=== PATIENT | male | born 1940 | race Caucasian/White ===

== ENCOUNTER 2023-04-24 10:59 | Outpatient (OUT) | payer MEDICARE, SELFPAY ==
--- NOTE | 2023-04-24 11:03 | US_ITS ---
[address] [address] Patient Name: JEANCARLOS MELÉNDEZ MRN: [id number] date: 1940 Sex: M Assigned Patient Location: Current Patient Location: Accession/Order Number: [id number] Exam Date: 04/24/2023 11:04 Report Date: 04/25/2023 22:40 At the request of: HEDY TITUS Procedure: US venous doppler LE RT RIGHT LOWER EXTREMITY DEEP VENOUS ULTRASOUND WITH DOPPLER IMAGING CLINICAL HISTORY: Lower extremity swelling COMPARISON: None TECHNIQUE: Zhang scale with compression maneuvers, Color Doppler and Spectral Doppler at rest and with augmentation of the right distal external iliac, common femoral, femoral and popliteal veins was performed. Diehl scale with compression maneuvers of the peroneal and posterior tibial veins was performed. The great and small saphenous veins were imaged in diehl scale with compression maneuvers at their insertion to the deep system. The contralateral external iliac vein and common femoral vein were imaged for comparison. Images were obtained and stored in a permanent archive. RESULT: RIGHT LOWER EXTREMITY PROXIMAL DEEP VEINS Distal External Iliac and Common Femoral Veins: Compression: Normal Doppler: Normal, spontaneous respirophasic flow Normal response to augmentation Femoral vein: Compression: Normal Doppler: Normal, spontaneous flow Normal response to augmentation Popliteal vein: Compression: Normal Doppler: Normal, spontaneous flow Normal response to augmentation CALF DEEP VEINS Peroneal veins: Normal compression Posterior tibial veins: Normal compression Gastrocnemius and Soleal veins: Not imaged SUPERFICIAL VEINS Great saphenous: Patent and compressible at insertion into common femoral vein; not otherwise assessed. Small Saphenous: Patent and compressible in the proximal calf, not otherwise assessed. US/US venous doppler LE RT IMPRESSION: NEGATIVE STUDY FOR ACUTE PROXIMAL DVT IN THE RIGHT LOWER EXTREMITY. NEGATIVE STUDY FOR ACUTE CALF DVT IN THE RIGHT LOWER EXTREMITY. NEGATIVE STUDY FOR SUPERFICIAL THROMBOPHLEBITIS IN THE RIGHT LOWER EXTREMITY Electronically authenticated by: MIGUEL EDOUARD Date: 04/25/2023 22:40
== END 2023-04-24 11:00 | disposition home or self-care (01) ==
LOC: US 10:59
PROVIDERS: PCP Family Medicine; Visit Provider Nurse Practitioner Family
DX: R60.0 Localized edema (principal)
CPT/HCPCS: 93971

== ENCOUNTER 2023-04-25 21:49 | Inpatient (IN) | payer MEDICARE, SELFPAY ==
[2023-04-25] VITALS (10 sets, daily range): BP systolic 183–216; BP diastolic 86–104; PULSE 57–67; RESP 15–19; TEMP 36.4; O2SAT 92–99; BMI 28.4
--- NOTE | 2023-04-25 22:05 | ECG_ITS ---
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
--- NOTE | 2023-04-25 22:06 | CT_ITS ---
The [address] [address] Patient Name: JEANCARLOS MELÉNDEZ MRN: [id number] date: 1940 Sex: M Assigned Patient Location: ED.MAIN Current Patient Location: Accession/Order Number: [id number] Exam Date: 04/25/2023 22:15 Report Date: 04/25/2023 22:39 At the request of: JANETH LEWIS Procedure: CT head/brain wo con EXAMINATION: CT head/brain wo con HISTORY: Seizures and altered mental status. - TECHNIQUE: CT head without contrast. All CT scans at this facility use dose modulation, iterative reconstruction, and/or weight based dosing when appropriate to reduce radiation dose to as low as reasonably achievable. COMPARISON: None. RESULT: Post-operative change: None. Acute change: No evidence of an acute intracranial process. Hemorrhage: No evidence of acute intracranial hemorrhage. Mass Lesion / Mass Effect: No evidence of an intracranial mass or extraaxial fluid collection. No significant mass effect. Chronic change: Scattered patchy foci of low attenuation are present within supratentorial white matter which is a nonspecific finding but likely represents mild microvascular ischemia. Atherosclerotic calcification of the carotid siphons and vertebrobasilar arteries. Parenchyma: Mild generalized volume loss. Ventricles: Ventricular enlargement concordant with the degree of parenchymal volume loss. Other: The calvarium, skull base, imaged paranasal sinuses, mastoids, orbits and extracranial soft tissues are unremarkable. CT/CT head/brain wo con IMPRESSION: 1. No acute intracranial abnormality; no acute infarct, intracranial hemorrhage or extra-axial collection. 2. Chronic microvascular ischemia and involutional changes. Electronically authenticated by: MIGUEL EDOUARD Date: 04/25/2023 22:39
[2023-04-25 22:33] LABS: Basophils Percent Auto 0.3 % (0.2-2.0); Eosinophils Absolute Auto 0.2 10^3/uL (0.0-0.7); Eosinophils Percent Auto 1.7 % (0.9-7.0); Hematocrit 39.5 % (42.0-54.0); Hemoglobin 13.6 g/dL (14.0-18.0); Immature Granulocytes Abs Auto 0.04 10^3/uL (0.00-0.03); Immature Granulocytes Pct Auto 0.4 % (0.0-0.5); Lymphocytes Percent Auto 9.9 % (20.5-60.0); Mean Corpuscular HGB Conc 34.4 g/dL (29.9-35.2); Mean Corpuscular Hemoglobin 30.2 pg (25.9-34.0); Mean Corpuscular Volume 87.6 fL (80.0-94.0); Mean Platelet Volume 8.6 fL (9.5-13.5); Monocytes Absolute Auto 0.7 10^3/uL (0.3-0.8); Monocytes Percent Auto 7.6 % (1.7-12.0); Neutrophils Absolute Auto 7.8 10^3/uL (1.4-6.5); Neutrophils Percent Auto 80.1 % (43.0-75.0); Platelet Count 242 10^3/uL (150-450); Red Blood Count 4.51 10^6/uL (4.70-6.10); Red Cell Distribution Width 12.2 % (11.0-15.0); White Blood Count 9.7 10^3/uL (4.0-11.0)
--- NOTE | 2023-04-25 22:36 | PC.NURSE ---
patient was found by . Thinks he may have had a seizure. patient was oriented when found him. he stated he was nauseous, couldnt see. he lost control of bowels and bladder. Patient refused to come to the ER. patient stated he had another unwitnessed episode about 30 min before arrival. He states he felt fine this morning. no symptoms leading up to the first episode
[2023-04-25 22:45] LABS: Lactate/Lactic Acid 1.2 mmol/L (0.4-2.0)
[2023-04-25 22:47] LABS: INR 0.96; Prothrombin Time 10.2 sec (9.0-11.6)
[2023-04-25 22:56] LABS: Alanine Aminotransferase 18 U/L (16-63); Albumin Globulin Ratio 1.2; Albumin Level 4.1 g/dL (3.4-5.0); Alkaline Phosphatase 62 U/L (46-116); Aspartate Amino Transferase 21 U/L (15-37); Bilirubin Total 0.4 mg/dL (0.2-1.0); Calcium 9.3 mg/dL (8.5-10.1); Carbon Dioxide 26.2 mmol/L (21.0-32.0); Chloride 93 mmol/L (98-107); Estimated GFR (African America >60 (>=60); Estimated GFR (Non-African Ame 55 (>=60); Globulin 3.5 g/dL; Glucose 124 mg/dL (74-106); Magnesium 1.8 mg/dL (1.8-2.4); Potassium 4.2 mmol/L (3.5-5.1); Sodium 127 mmol/L (136-145); Total Protein 7.6 g/dL (6.4-8.2)
[2023-04-25 22:58] LABS: Creatine Kinase 124 U/L (39-308); Creatine Kinase MB 2.19 ng/mL (<=3.60); Myoglobin 69 ng/mL (16-96); Troponin I High Sensitivity 4.3 pg/mL (4.0-76.1)
--- NOTE | 2023-04-25 23:03 | ED.GENADUL1 ---
HPI - General Adult General Chief complaint: Seizure Stated complaint: poss mini stroke last normal 20 min ago Time Seen by Provider: 04/25/23 22:05 Source: patient and family Mode of arrival: Wheelchair Limitations: no limitations History of Present Illness HPI narrative: The patient is a [age] years old male with past medical history of hypertension and hyperlipidemia, presenting to us with two episodes of syncope today although the patient referring to them a seizure ,What he mentioned that he will feel nauseous and dizzy and he cannot see clearly And then he would lay down on the floor His presented to us if she mentioned that there was some incontinence of urine but there was no involuntary movement , And he also had this 2nd episode also with the same thing today before arrival The patient would get dizzy and nauseous And he mentioned that he would pass out although his mentioned that he will wake up right away He did mention having some headache during the day he is denying any abdominal pain but he had one episode of loose stool He is complaining right now of dizziness and weakness Related Data Home Medications Medication Instructions Recorded Confirmed amlodipine 5 mg tablet mg 04/25/23 amoxicillin 875 mg tablet mg 04/25/23 clonidine HCl 0.2 mg tablet mg 04/25/23 lisinopril 40 mg tablet mg 04/25/23 lovastatin 40 mg tablet mg 04/25/23 metoprolol tartrate 25 mg tablet mg 04/25/23 metoprolol tartrate 50 mg tablet mg 04/25/23 oxcarbazepine 300 mg tablet mg 04/25/23 pantoprazole 40 mg tablet,delayed mg PO 04/25/23 release tamsulosin 0.4 mg capsule mg PO 04/25/23 Allergies Allergy/AdvReac Type Severity Reaction Status Date / Time No Known Drug Allergies Allergy Verified 04/25/23 22:08 Review of Systems ROS Status of ROS 10 or more systems reviewed and unremarkable except as noted in history and below Exam Narrative Exam Narrative: Nurses notes and vital signs reviewed and patient is not hypoxic. General: Well-appearing and in no apparent distress. Skin: Warm, dry, no pallor noted. No rash. Head: Normocephalic, atraumatic. Neck: Supple, non-tender. Eye: Pupils are equal, round and EOMI. No scleral icterus. Ears, Nose, Mouth, and Throat: TM are clear, no nasal mucosal hypertrophy. Oral mucosa is moist, no posterior oropharynx erythema, uvula is mid-line Cardiovascular: Regular Rate and Rhythm without murmur, gallop or rub. Respiratory: No accessory muscle use or respiratory distress. Lungs are clear to auscultation, no wheezing, rales or rhonchi Chest Wall: no tenderness Back: No midline thoracic or lumbar vertebral tenderness. No CVA tenderness Musculoskeletal: normal ROM, no calf or popliteal tenderness, no lower extremity edema/swelling GI: Abdomen is soft, non-distended. Normal bowel sounds. No masses appreciated. No tenderness to palpation. No rebound, guarding, or rigidity noted. Neurological: A&O x4. No cranial nerve dysfunction observed. No truncal ataxia. Moves all extremities. Sensation intact. Psychiatric: Cooperative and interactive. Normal mood and affect. Constitutional Vital Signs, click to edit/add: Last Vital Signs Temp 97.5 F L 04/25/23 21:56 Pulse 67 04/25/23 23:31 Resp 16 04/25/23 23:31 BP 191/99 H 04/25/23 23:31 Pulse Ox 99 04/25/23 23:31 O2 Del Method Room Air 04/25/23 21:56 Course Vital Signs Vital signs: Vital Signs Temperature 97.5 F L 04/25/23 21:56 Pulse Rate 62 04/25/23 21:56 Respiratory Rate 18 04/25/23 21:56 Blood Pressure 216/104 H 04/25/23 21:56 Pulse Oximetry 98 04/25/23 21:56 Oxygen Delivery Method Room Air 04/25/23 21:56 Temperature 97.5 F L 04/25/23 21:56 Pulse Rate 67 04/25/23 23:31 Respiratory Rate 16 04/25/23 23:31 Blood Pressure 191/99 H 04/25/23 23:31 Pulse Oximetry 99 04/25/23 23:31 Oxygen Delivery Method Room Air 04/25/23 21:56 Medical Decision Making MDM Narrative Medical decision making narrative: The patient EKG upon presentation showing sinus rhythm with a heart rate of 59 The patient CBC showed no acute pathology chemistry was showing hyponatremia Urinalysis is pending and the patient CAT scan of the head showed no acute pathology as well The patient presented to us with syncopal episodes associated with dizziness and nausea and vomiting his troponin initially was negative and it would be repeated The patient blood pressure is also showing levels of above 200 systolic he was treated in the ER with hydralazine but he needs further evaluation of his blood pressure management The patient will be admitted for further evaluation and observation, the case was discussed with Dr. Jensen Lab Data Labs: Lab Results 04/25/23 Range/Units 22:05 WBC 9.7 (4.0-11.0) 10^3/uL RBC 4.51 L (4.70-6.10) 10^6/uL Hgb 13.6 L (14.0-18.0) g/dL Hct 39.5 L (42.0-54.0) % MCV 87.6 (80.0-94.0) fL MCH 30.2 (25.9-34.0) pg MCHC 34.4 (29.9-35.2) g/dL RDW 12.2 (11.0-15.0) % Plt Count 242 (150-450) 10^3/uL MPV 8.6 L (9.5-13.5) fL Neut % (Auto) 80.1 H (43.0-75.0) % Lymph % (Auto) 9.9 L (20.5-60.0) % [place] % (Auto) 7.6 (1.7-12.0) % Eos % (Auto) 1.7 (0.9-7.0) % Baso % (Auto) 0.3 (0.2-2.0) % Neut # (Auto) 7.8 H (1.4-6.5) 10^3/uL Lymph # (Auto) 1.0 L (1.2-3.8) 10^3/uL [place] # (Auto) 0.7 (0.3-0.8) 10^3/uL Eos # (Auto) 0.2 (0.0-0.7) 10^3/uL Baso # (Auto) 0.0 (0.0-0.1) 10^3/uL Abs Immat Gran (auto) 0.04 H (0.00-0.03) 10^3/uL Imm/Tot Granulo (auto) 0.4 (0.0-0.5) % PT 10.2 (9.0-11.6) sec INR 0.96 Sodium 127 L (136-145) mmol/L Potassium 4.2 (3.5-5.1) mmol/L Chloride 93 L (98-107) mmol/L Carbon Dioxide 26.2 (21.0-32.0) mmol/L Anion Gap 12.0 BUN 15.0 (7.0-18.0) mg/dL Creatinine 1.25 (0.70-1.30) mg/dL Est GFR ( Amer) >60 (>=60) Est GFR (Non-Af Amer) 55 L (>=60) BUN/Creatinine Ratio 12.0 Glucose 124 H (74-106) mg/dL Lactate 1.2 (0.4-2.0) mmol/L Calcium 9.3 (8.5-10.1) mg/dL Magnesium 1.8 (1.8-2.4) mg/dL Total Bilirubin 0.4 (0.2-1.0) mg/dL AST 21 (15-37) U/L ALT 18 (16-63) U/L Alkaline Phosphatase 62 (46-116) U/L Total Creatine Kinase 124 (39-308) U/L CK-MB (CK-2) 2.19 (<=3.60) ng/mL Myoglobin 69 (16-96) ng/mL Troponin I High Sens 4.3 (4.0-76.1) pg/mL NT-Pro-B Natriuret Pep 336.0 (<=1800.0) pg/mL Total Protein 7.6 (6.4-8.2) g/dL Albumin 4.1 (3.4-5.0) g/dL Globulin 3.5 g/dL Albumin/Globulin Ratio 1.2 Discharge Plan Discharge Chief Complaint: Seizure Clinical Impression: Hypertensive emergency, Syncope, Weakness, Acute hyponatremia Patient Disposition: Admitted as Observation Time of Disposition Decision: 00:06 Condition: Good
[2023-04-25] MEDS: HYDRALAZINE HCL 20 MG/ML VIAL 10 MG IVP (23:19)
[2023-04-26] VITALS (21 sets, daily range): BP systolic 138–187; BP diastolic 69–93; PULSE 44–81; RESP 13–20; TEMP 36.5–36.7; O2SAT 96–99; BMI 28.7
[2023-04-26 00:47] LABS: Troponin I High Sensitivity 5.7 pg/mL (4.0-76.1)
--- NOTE | 2023-04-26 01:54 | P.PN_ITS ---
Progress Note: Subjective Subjective Interval history: The patient is an 82-year-old male with a history of hypertension, dyslipidemia and possible seizure disorder, who told his earlier today that he felt dizzy. He then had some nausea a syncopal episode and urinary incontinence. All of this happened while he was watching TV. He states that he was recently started on a medication for sinus infection but does not know the name. He is a very poor historian. He presented to the ED and his blood pressure was elevated at 196/99. He was given hydralazine. Head CT and troponins were negative. He was noted to have hyponatremia with a sodium of 127. He is being admitted for further work-up. Exam Narrative Exam Narrative: General : Alert and oriented x2 HEENT : Extraocular movements intact, pupils equal round and reactive to light and accommodation Neck: Supple, no JVD Chest: Clear to auscultation bilaterally, no wheezes Heart: Regular rate and rhythm, S1 and S2 heard Abdomen: Soft nontender nondistended. Extremities: No clubbing cyanosis or edema Neurologically: Moving all 4 extremities Skin: No rashes Constitutional Vital Signs, click to edit/add: Last Vital Signs Temp 97.5 F L 04/25/23 21:56 Pulse 65 04/26/23 00:30 Resp 19 04/26/23 00:30 BP 156/74 H 04/26/23 00:30 Pulse Ox 98 04/26/23 00:30 O2 Del Method Room Air 04/25/23 21:56 Progress Note: Objective Labs Labs: Short CBC 04/25/23 Range/Units 22:05 WBC 9.7 (4.0-11.0) 10^3/uL Hgb 13.6 L (14.0-18.0) g/dL Hct 39.5 L (42.0-54.0) % Plt Count 242 (150-450) 10^3/uL BMP 04/25/23 22:05 Sodium 127 L Potassium 4.2 Chloride 93 L Carbon Dioxide 26.2 BUN 15.0 Creatinine 1.25 Glucose 124 H Calcium 9.3 Cardiac Enzymes 04/25/23 Range/Units 22:05 Total Creatine Kinase 124 (39-308) U/L CK-MB (CK-2) 2.19 (<=3.60) ng/mL Liver Function 07/16/23 Range/Units 22:05 Total Bilirubin 0.4 (0.2-1.0) mg/dL AST 21 (15-37) U/L ALT 18 (16-63) U/L Alkaline Phosphatase 62 (46-116) U/L Albumin 4.1 (3.4-5.0) g/dL Progress Note: A&P Assessment and Plan (1) Hypertensive emergency: (2) Syncope: (3) Weakness: (4) Acute hyponatremia: Plan The patient is an 82-year-old male with above medical problems, presenting with near syncopal episode also noted to have hyponatremia. Acute hyponatremia -Provide supportive care -Check serum and urine osmolalities -Check urine sodium -Gentle IV fluids -Serial BMP Near syncope -Could be from multiple medications as well as Flomax and possible dehydration -Hold Flomax -Gentle IV fluids -Keep on telemetry to look for underlying arrhythmia -Orthostatic blood pressures Hypertensive urgency -Hydralazine IV as needed DVT Prophylaxis -Lovenox, SCDs Medication review -Medication reconciliation form completed Goals of care -Full code Communications -Discussed with the emergency room physician -Discussed with the bedside nurse -Patient updated of plan of care, all questions answered to their satisfaction Disposition -PT/OT - Home when medically stable Telemedicine clause -As the provider of this telehealth evaluation, requested by the patient's evaluating physician, I attest that I introduced myself to the patient, provided my credentials and determined that telemedicine via a real-time, two-way interactive audio and video platform is an appropriate and effective means of providing this service. -I reviewed the patient's chart and had a discussion with the member of the patient's treatment team. -The patient and I mutually agreed with continuation of this evaluation via telemedicine. The patient consented for the telemedicine evaluation. -This virtual encounter was taken place from [place], [place]. The encounter was approximately 35 minutes. The nurse was present during the entire time of the encounter and was able to remove the stethoscope and appropriate directions. The patient was evaluated at [facility] Telemedicine Attestation Telemedicine Attestation I conducted this encounter from [facility] via secure live, [id number] video conference with the patient, located at [facility] with nurse. Prior to the interview, the risks and benefits of telemedicine were discussed with the patient and verbal consent was obtained.
[2023-04-26] MEDS: ACETAMINOPHEN 325 MG TABLET 650 MG PO ×2 (02:38→06:08)
[2023-04-26] MEDS: 0.9 % SODIUM CHLORIDE 1,000 ML 100 ML IV ×3 (02:38→22:45)
[2023-04-26] MEDS: ONDANSETRON PF 4 MG/2 ML VIAL IV ×2 (02:39→07:49)
[2023-04-26 05:40] LABS: Bilirubin Urine NEGATIVE (NEGATIVE); Blood Urine NEGATIVE (NEGATIVE); Clarity Urine CLEAR (CLEAR); Color Urine LT. YELLOW (YELLOW); Glucose Urine UA NEGATIVE (NEGATIVE); Ketones Urine TRACE mg/dL (NEGATIVE); Leukocyte Esterase Urine SMALL (NEGATIVE); Nitrite Urine NEGATIVE (NEGATIVE); Protein Urine NEGATIVE (NEG/TRACE); Urobilinogen Urine 0.2 EU/dL (0.2-1.0); pH Urine 6.5 (5.0-9.0)
[2023-04-26 05:41] LABS: Basophils Percent Auto 0.3 % (0.2-2.0); Eosinophils Absolute Auto 0.1 10^3/uL (0.0-0.7); Eosinophils Percent Auto 0.7 % (0.9-7.0); Hematocrit 37.8 % (42.0-54.0); Immature Granulocytes Abs Auto 0.06 10^3/uL (0.00-0.03); Immature Granulocytes Pct Auto 0.5 % (0.0-0.5); Lymphocytes Percent Auto 8.2 % (20.5-60.0); Mean Corpuscular HGB Conc 34.4 g/dL (29.9-35.2); Mean Corpuscular Hemoglobin 30.3 pg (25.9-34.0); Mean Corpuscular Volume 88.1 fL (80.0-94.0); Mean Platelet Volume 8.7 fL (9.5-13.5); Monocytes Absolute Auto 0.9 10^3/uL (0.3-0.8); Monocytes Percent Auto 8.1 % (1.7-12.0); Neutrophils Absolute Auto 9.5 10^3/uL (1.4-6.5); Neutrophils Percent Auto 82.2 % (43.0-75.0); Platelet Count 237 10^3/uL (150-450); Red Blood Count 4.29 10^6/uL (4.70-6.10); Red Cell Distribution Width 12.3 % (11.0-15.0); White Blood Count 11.6 10^3/uL (4.0-11.0)
[2023-04-26 05:43] LABS: Sodium Urine Random 95 mmol/L (30-90)
[2023-04-26 06:11] LABS: Anion Gap 12.2; BUN Creatinine Ratio 11.6; Calcium 9.3 mg/dL (8.5-10.1); Chloride 93 mmol/L (98-107); Estimated GFR (African America >60 (>=60); Estimated GFR (Non-African Ame 57 (>=60); Glucose 104 mg/dL (74-106); Potassium 4.2 mmol/L (3.5-5.1); Sodium 128 mmol/L (136-145)
[2023-04-26] MEDS: MAALOX (MAG HYDROX/ALUMINUM HYD/SIMETH) 30 ML ORAL.SUSP PO (07:49)
--- NOTE | 2023-04-26 08:40 | MR_ITS ---
The [address] [address] Patient Name: JEANCARLOS MELÉNDEZ MRN: [id number] date: 1940 Sex: M Assigned Patient Location: ICU Current Patient Location: ICU Accession/Order Number: [id number] Exam Date: 04/26/2023 11:40 Report Date: 04/26/2023 12:35 At the request of: THAIS WALLACE Procedure: MR head/brain wo con EXAM: MR head/brain wo con HISTORY: syncope, headache COMPARISON: CT head 04/25/2023. TECHNIQUE: Multiplanar multisequence MR imaging of the brain was performed without intravenous contrast. FINDINGS: Calvarium/skull base: No focal marrow replacing lesion suggestive of neoplasm. Orbits: Grossly unremarkable. Paranasal sinuses: Imaged portions clear Brain: No restricted diffusion. Minimal supratentorial T2 FLAIR signal hyperintensities are present with much lesser involvement of the central pontine white matter. This is considered within normal limits for patient's age and most commonly relates to sequela small vessel disease. No mass effect, hemorrhage, or hydrocephalus. Grossly normal flow-related signal in the major intracranial arteries and dural sinuses. MR/MR head/brain wo con IMPRESSION: 1. No acute intracranial process. 2. Minimal senescent change. Electronically authenticated by: TAE SINGH Date: 04/26/2023 12:35
--- NOTE | 2023-04-26 08:40 | US_ITS ---
[place] [id number] Patient Name: JEANCARLOS MELÉNDEZ MRN: [id number] date: 1940 Sex: M Assigned Patient Location: ICU Current Patient Location: ICU Accession/Order Number: [id number] Exam Date: 04/26/2023 13:00 Report Date: 04/26/2023 14:19 At the request of: THAIS WALLACE Procedure: US carotid duplex BI EXAMINATION: US carotid duplex BI HISTORY: syncope COMPARISON: No relevant comparison available. TECHNIQUE: Duplex Doppler ultrasound analysis of carotid and vertebral arteries. . Bilateral carotid arterial duplex examination was performed using B-mode, color flow and spectral analysis. Carotid stenosis is reported according to validated velocity parameters, similar to NASCET criteria. FINDINGS: RIGHT CAROTID ARTERY Mild atherosclerotic plaque Subclavian: PSV: 145.1 cm/s cm/s EDV: 11.0 cm/s cm/s CCA: Prox: PSV: 101.7 cm/s cm/s EDV: 11.0 cm/s cm/s Mid: PSV: 85.9 cm/s cm/s EDV: 15.0 cm/s cm/s Distal: PSV: 72.0 cm/s cm/s EDV: 12.4 cm/s cm/s BULB: PSV: 39.6 cm/s cm/s EDV: 9.8 cm/s cm/s ICA: Prox: PSV: 51.8 cm/s cm/s EDV: 11.4 cm/s cm/s Mid: PSV: 93.9 cm/s cm/s EDV: 18.9 cm/s cm/s Distal: PSV: 91.3 cm/s cm/s EDV: 22.8 cm/s cm/s ECA: PSV: 104.2 cm/s cm/s EDV: 0.0 cm/s cm/s VERTEBRAL: PSV: 49.9 cm/s cm/s EDV: 11.1 cm/s cm/s ICA/CCA ratio: PSV: 1.3 EDV: 1.5 LEFT CAROTID ARTERY Mild atherosclerotic plaque Subclavian: PSV: 185.6 cm/s cm/s EDV: 0.0 cm/s CCA: Prox: PSV: 82.3 cm/s cm/s EDV: 11.1 cm/s Mid: PSV: 84.9 cm/s cm/s EDV: 15.0 cm/s Distal: PSV: 61.6 cm/s cm/s EDV: 12.4 cm/s BULB: PSV: 70.7 cm/s cm/s EDV: 11.1 cm/s ICA: Prox: PSV: 84.9 cm/s cm/s EDV: 17.6 cm/s Mid: PSV: 70.7 cm/s cm/s EDV: 15.0 cm/s Distal: PSV: 61.1 cm/s cm/s EDV: 13.8 cm/s ECA: PSV: 104.3 cm/s cm/s EDV: 15.0 cm/s VERTEBRAL: PSV: 38.0 cm/s cm/s EDV: 10.1 cm/s ICA/CCA ratio: PSV: 1.4 EDV: 1.4 US/US carotid duplex BI IMPRESSION: 0-49% flow stenosis bilateral internal carotid arteries Spectral Doppler US Thresholds (Reference: Delmar EG, et al. Radiology 2000; 214:247-252) Stenosis (%) PSV (cm/sec) VICA/VCCA 0-49 <150 <2.5 50-69 150-225 2.5-4.0 >70 >225 >4.0 Electronically authenticated by: CHANTELLE WHYTE Date: 04/26/2023 14:19
--- NOTE | 2023-04-26 08:40 | CA_ITS ---
Patient: JEANCARLOS MELÉNDEZ Exam Date: 04/26/2023 : 1940 Gender:M Ordering : Tatianna Jaime . Admission #: [id number] Family : Order #: [id number] CLICK HERE TO VIEW EXAM ECHOCARDIOGRAM REPORT PROCEDURE: CA ECHO DOPPLER COMPLETE INDICATIONS: Syncope, hypertension COMPARISON: None. DESCRIPTION: COMPLETE ECHOCARDIOGRAM Real-time transthoracic echocardiography with 2D, M-mode, spectral and color flow Doppler performed. QUALITY: Technical quality was adequate. LEFT VENTRICLE: Normal chamber size. Thickened septal wall. Normal systolic function. LV EF: Normal left ventricular ejection fraction, (55%). DIASTOLIC: Normal diastolic function. ATRIAL SEPTUM: LEFT ATRIUM: Normal chamber size. RIGHT ATRIUM: Normal chamber size. RIGHT VENTRICLE: Normal chamber size. Normal right ventricular systolic function. TRICUSPID VALVE: Normal mobility and thickness. No stenosis with trivial regurgitation. No evidence of pulmonary hypertension. RVSP 23 mmHg MITRAL VALVE: Normal mobility and thickness. No evidence of mitral valve stenosis. There is no mitral annular calcification. Trivial mitral regurgitation. AORTIC VALVE: Normal trileaflet appearance. No visible sclerosis. Normal leaflet mobility. No evidence of aortic valve stenosis. No aortic regurgitation. AORTIC ROOT: Mildly dilated, measuring 3.8 cm. PULMONIC VALVE: Normal thickness and mobility. No stenosis. No regurgitation. PERICARDIUM: No evidence of pericardial effusion. IVC: Not well visualized. PLEURA: CONCLUSION: 1. Normal ventricular systolic function. LVEF is estimated at 55%. 2. Normal diastolic function. 3. No significant valvular dysfunction. 4. Normal right-sided pressures. 5. Mildly dilated aortic root measuring 3.8 cm. Adult Echocardiography Procedure Report Left Ventricle LVEDD (3.7 - 5.6 cm): 4.40 cm LVESD (2.2 - 4.0 cm): 3.28 cm LVIVS thickness (0.6 - 1.2 cm): 1.25 cm LVPW thickness (0.5 - 1.0 cm): 1.11 cm LVOT Max Gradient: 7 mm[Hg] Peak Velocity (LVOT): 129.00 cm/s LVOT Diameter 2.10 cm Left Ventricular Ejection Fraction: 55% Left Atrium LA Volume Index (2D A2C): 11856 mm3 Left Atrium Systolic Dimension: 3.30 cm Mitral Valve MV E to A Ratio: 1.20 Mitral Valve A-Wave Peak Velocity: 62.20 cm/s Mitral Valve E-Wave Peak Velocity: 75.50 cm/s Right Ventricle Aorta AO Root Diam: 3.80 cm Aortic Valve AoV Area (Peak Fabian): 3.17 cm2 Peak Velocity(Antegrade Flow): 141.00 cm/s Peak Gradient(Antegrade Flow): 8 mm[Hg] Tricuspid Valve Peak Velocity (Regurgitant Flow): 224.00 cm/s Peak Velocity: 46.60 cm/s Pulmonic Valve Peak Velocity: 103.00 cm/s, 103.00 cm/s Peak Gradient: 4 mm[Hg] Right Atrium Dictated by: Edgar Williamson M.D. on 04/27/2023 at 19:08 Approved by: Edgar Williamson M.D. on 04/27/2023 at 19:11
--- NOTE | 2023-04-26 08:47 | PM.HP ---
H&P: HPI History of Present Illness Chief complaint: poss mini stroke last normal 20 min ago Narrative: patient is an 82-year-old male with past medical history of hypertension hyperlipidemia and peripheral neuropathy. Patient states over the last week he was having some sinus symptoms and seen his primary care doctor and was prescribed amoxicillin. He took approximately 2-3 days worth of amoxicillin and yesterday while watching TV developed some dizziness and felt as if he was given a pass out. So he laid on the floor and he wasn't sure if he passed out or not. His who is also present on admission exam states this was not witnessed but he did have some urinary incontinence at the time. He also admits to having some bladder issues of which she has had a bladder surgery in the past and he's had some problems urinating of which she is taking the Flomax. He is also been experiencing some increased GERD reflux symptoms and some stomach pain. Mild nausea which has also been experiencing a headache. In the emergency department he was found to have elevated blood pressure and headache which qualified him for hypertensive urgency he was admitted for dialysis as well as hyponatremia. He continues to complain of a headache this morning with some epigastric pain. He reports his only recent medical change has been a heart catheterization that was normal approximately one to three months ago at [facility].he denies any seizure activity and reports when she found him he was oblique mind and did not seem confused about events. He is a nonsmoker and he typically gets around well and his home. no issues with gait, or speech, or numbness and tingling in hands face or facial droop noted. Also denies any issues with memory. Review of Systems ROS Narrative ROS: a complete review of systems were reviewed with patient and are positive as below or listed in History of Chief Complaint. General: no fever, chills, night sweats Head: no headache, trauma, blurriness of vision at times, no nausea or vomiting Skin: no reported rashes, itching or sores Eyes: no blurriness of vision Ears: no reported hearing loss, vertigo, earache, or tinnitus Throat: no sore throat, hoarseness, swelling of neck, or tongue pain Heart: no chest pain Lungs: no shortness of breath or cough GI: epigastric pain Urinary: no urinary urgency, frequency or pain Neuro: no numbness or tingling HEM: no bleeding issues or bruising ENDO: no thyroid problems Psych: no anxiety or depression PFSH PFS Medical History Social History Smoking status: Never smoker Non-prescribed substance use: denies use Previous occupational history: retired Highest level of school completed/degree received: high school graduate Are you now , , , , never or living with a partner: In a typical week, how many times do you talk on the telephone with family, friends, or neighbors: once per week How often do you get together with friends or relatives: once per week Little interest or pleasure in doing things: not at all Feeling down, depressed, or hopeless: not at all Feel stressed/tense/nervous/anxious/difficulty sleeping: not at all Do you think of yourself as: straight/heterosexual Gender Identity: male Meds Home Medications and Allergies Home Medications Medication Instructions Recorded Confirmed Type clonidine HCl 0.2 mg tablet 0.2 mg PO Q12H 04/25/23 04/26/23 History lovastatin 40 mg tablet 40 mg PO DAILY 04/25/23 04/26/23 History metoprolol tartrate 50 mg tablet 75 mg PO Q12H 04/25/23 04/26/23 History oxcarbazepine 300 mg tablet 300 mg PO BID 04/25/23 04/26/23 History pantoprazole 40 mg tablet,delayed 40 mg PO DAILY 04/25/23 04/26/23 History release tamsulosin 0.4 mg capsule 0.4 mg PO DAILY 04/25/23 04/26/23 History Lactobacills gasseri-Bifidobac 1 cap PO DAILY 04/26/23 04/26/23 History bifidum,longum 1.5 billion cell capsule (Probiotic Colon Care) Allergies Allergy/AdvReac Type Severity Reaction Status Date / Time No Known Drug Allergies Allergy Verified 04/25/23 22:08 Exam Narrative Exam Narrative: General: Patient is alert, and oriented to person, place and time with normal affect, proper hygiene Skin: no visible rashes, or ulcers Head: atraumatic, acephalic Eyes: PERRLA, no nystagmus present, conjunctiva clear, no scleral icterus Ears: normal Tympanic Membrane, normal gross auditory acuity Nose: symmetric, no discharge, no maxillary or frontal sinus tenderness Mouth/Throat: no erythema, exudate, or tonsillar enlargement, normal dentition Neck: no masses palpated, normal thyroid, no JVD or audible carotid bruits Heart: Normal rate and rhythm, no murmurs/rubs/gallops Lungs: no audible wheezes, crackles and normal breath sounds all lung hong Abdomen: Normal audible bowel sounds, no distension, No palpable masses, no organomegaly, no rebound/guarding/ or rigidity Musculoskeletal: muscle atrophy noted, ROM is limited due to being in hospital bed, no swelling bilateral lower extremities Vascular: Normal carotid, radial, femoral, posterior tibial, and dorsalis pedis pulses Lymph: no supraclavicular, axillary, or anterior/posterior cervical adenopathy Neuro: CN II-X grossly intact, normal sensation upper and lower extremities Constitutional Vital Signs, click to edit/add: Last Vital Signs Temp 98.0 F 04/26/23 04:16 Pulse 62 04/26/23 08:05 Resp 16 04/26/23 08:05 BP 151/70 H 04/26/23 07:38 Pulse Ox 99 04/26/23 04:16 O2 Del Method Room Air 04/25/23 21:56 Results Labs Labs: Short CBC 04/25/23 04/26/23 Range/Units 22:05 04:21 WBC 9.7 11.6 H (4.0-11.0) 10^3/uL Hgb 13.6 L 13.0 L (14.0-18.0) g/dL Hct 39.5 L 37.8 L (42.0-54.0) % Plt Count 242 237 (150-450) 10^3/uL BMP 04/25/23 04/26/23 22:05 04:21 Sodium 127 L 128 L Potassium 4.2 4.2 Chloride 93 L 93 L Carbon Dioxide 26.2 27.0 BUN 15.0 14.0 Creatinine 1.25 1.21 Glucose 124 H 104 Calcium 9.3 9.3 Cardiac Enzymes 04/25/23 Range/Units 22:05 Total Creatine Kinase 124 (39-308) U/L CK-MB (CK-2) 2.19 (<=3.60) ng/mL Liver Function 04/25/23 Range/Units 22:05 Total Bilirubin 0.4 (0.2-1.0) mg/dL AST 21 (15-37) U/L ALT 18 (16-63) U/L Alkaline Phosphatase 62 (46-116) U/L Albumin 4.1 (3.4-5.0) g/dL Urine 04/25/23 Range/Units 04:15 Urine Color Lt. yellow (YELLOW) Urine Clarity Clear (CLEAR) Urine pH 6.5 (5.0-9.0) Ur Specific Leblanc 1.010 (1.005-1.025) Urine Protein Negative (NEG/TRACE) mg/dL Urine Glucose (UA) Negative (NEGATIVE) mg/dL Assessment and Plan Assessment and Plan (1) Hypertensive emergency: Assessment and Plan: continue clonidine, metoprolol and hydralazine IV, patient was placed on telemetry and we'll continue to monitor blood pressure closely and see if this could also be related to his headache. (2) Syncope: Assessment and Plan: normal heart catheter approximately one to three months ago is reassuring, MRI of the brain today was normal, will get carotid artery ultrasounds continue on telemetry EKG unremarkable. Cardiac enzymes and proBNP of also been within normal range, could be due to dehydration and electrolyte abnormalities. But we'll rule out any cardiogenic issues, could also be seizure-like activity but low suspicion.could also be something as simple as his sinus infection that could be contributing to vestibular issues placed on Rocephin for sinus issues. (3) Weakness: Assessment and Plan: most likely due from some dehydration we'll continue IV fluids gentle with normal saline and and/or the electrolyte abnormalities and will replace sodium (4) Acute hyponatremia: Assessment and Plan: continue every six hour BMPs monitored closely asymptomatic we'll continue normal saline and hold Flomax (5) Peripheral neuropathy: Assessment and Plan: continue oxcarbazepine (6) Headache: Assessment and Plan: Tylenol and tramadol as needed for pain continue to monitor blood pressure Plan patient is a full code continue Lovenox for deep vein thrombosis prophylaxis Will place on Protonix for gastrointestinal prophylaxis and GERD Patient was placed in inpatient status and is expected to stay more than two midnights
[2023-04-26] MEDS: CLONIDINE HCL 0.1 MG TABLET 0.2 MG PO (08:50)
[2023-04-26] MEDS: OXcarbazepine 300 MG TABLET PO ×2 (08:50→20:58)
[2023-04-26] MEDS: ATORVASTATIN CALCIUM 10 MG TABLET PO (08:50)
[2023-04-26] MEDS: OMEPRAZOLE 40 MG CAPSULE.DR PO (08:50)
[2023-04-26] MEDS: ENOXAPARIN SODIUM 40 MG/0.4 ML SYRINGE SUBQ (08:51)
[2023-04-26] MEDS: METOPROLOL TARTRATE 50 MG TABLET 75 MG PO (08:51)
[2023-04-26] MEDS: PANTOPRAZOLE SODIUM 40 MG VIAL IV (10:47)
[2023-04-26 12:12] LABS: Anion Gap 12.5; BUN Creatinine Ratio 10.6; Calcium 8.8 mg/dL (8.5-10.1); Carbon Dioxide 25.5 mmol/L (21.0-32.0); Chloride 94 mmol/L (98-107); Estimated GFR (African America >60 (>=60); Estimated GFR (Non-African Ame 56 (>=60); Glucose 134 mg/dL (74-106); Sodium 128 mmol/L (136-145)
--- NOTE | 2023-04-26 12:15 | CM.NOTE ---
Rounds made with Dr. Jaime, pt will have MRI today and PT and OT evaluation.
--- NOTE | 2023-04-26 12:17 | PC.NURSE ---
Departed to MRI at 1145, monitor removed.
[2023-04-26] MEDS: TRAMADOL HCL 50 MG TABLET PO ×2 (12:33→17:31)
[2023-04-26] MEDS: CEFTRIAXONE 1,000 MG in 0.9 % SODIUM CHLORIDE 50 ML 100 MG IV (12:34)
--- NOTE | 2023-04-26 15:45 | CM.NOTE ---
Important Message From Medicare discussed with pt, pt verbalizes understanding and signs paper. Original given to pt and copy placed on pt's chart.
[2023-04-26 17:53] LABS: Anion Gap 12.3; Calcium 8.9 mg/dL (8.5-10.1); Carbon Dioxide 26.7 mmol/L (21.0-32.0); Chloride 94 mmol/L (98-107); Estimated GFR (African America >60 (>=60); Estimated GFR (Non-African Ame 53 (>=60); Glucose 116 mg/dL (74-106); Sodium 129 mmol/L (136-145)
[2023-04-26] MEDS: POLYETHYLENE GLYCOL 3350 17 GM POWDER PACKET PO (20:58)
[2023-04-26] MEDS: TEMAZEPAM 15 MG CAPSULE PO (22:45)
[2023-04-27] VITALS (15 sets, daily range): BP systolic 155–178; BP diastolic 76–81; PULSE 41–63; RESP 18–20; TEMP 36.4–36.6; O2SAT 94–99
[2023-04-27] MEDS: 0.9 % SODIUM CHLORIDE 1,000 ML 100 ML IV ×2 (07:34→17:36)
[2023-04-27] MEDS: ENOXAPARIN SODIUM 40 MG/0.4 ML SYRINGE SUBQ (08:28)
[2023-04-27] MEDS: METOPROLOL TARTRATE 50 MG TABLET 75 MG PO ×2 (08:28→20:17)
[2023-04-27] MEDS: CLONIDINE HCL 0.1 MG TABLET 0.2 MG PO ×2 (08:28→20:18)
[2023-04-27] MEDS: ATORVASTATIN CALCIUM 10 MG TABLET PO (08:28)
[2023-04-27] MEDS: DOCUSATE SODIUM 100 MG CAPSULE PO (08:29)
[2023-04-27] MEDS: OXcarbazepine 300 MG TABLET PO ×2 (08:30→20:19)
--- NOTE | 2023-04-27 08:52 | PM.PN ---
Progress Note: Subjective Subjective Interval history: patient is an 82-year-old male with past medical history of hypertension hyperlipidemia and peripheral neuropathy. Patient states over the last week he was having some sinus symptoms and seen his primary care doctor and was prescribed amoxicillin. He took approximately 2-3 days worth of amoxicillin and yesterday while watching TV developed some dizziness and felt as if he was given a pass out. So he laid on the floor and he wasn't sure if he passed out or not. His who is also present on admission exam states this was not witnessed but he did have some urinary incontinence at the time. He also admits to having some bladder issues of which she has had a bladder surgery in the past and he's had some problems urinating of which she is taking the Flomax. He is also been experiencing some increased GERD reflux symptoms and some stomach pain. Mild nausea which has also been experiencing a headache. In the emergency department he was found to have elevated blood pressure and headache which qualified him for hypertensive urgency he was admitted for dialysis as well as hyponatremia. He continues to complain of a headache this morning with some epigastric pain. He reports his only recent medical change has been a heart catheterization that was normal approximately one to three months ago at [facility].he denies any seizure activity and reports when she found him he was oblique mind and did not seem confused about events. He is a nonsmoker and he typically gets around well and his home. no issues with gait, or speech, or numbness and tingling in hands face or facial droop noted. Also denies any issues with memory. this morning says he feels overall improved, he denies any new complaints at this time. He also reports he has been getting up without dizziness Exam Narrative Exam Narrative: General: Patient is alert, and oriented to person, place and time with normal affect, proper hygiene Skin: no visible rashes, or ulcers Head: atraumatic, acephalic Eyes: PERRLA, no nystagmus present, conjunctiva clear, no scleral icterus Nose: symmetric, no discharge, no maxillary or frontal sinus tenderness Mouth/Throat: no erythema, exudate, or tonsillar enlargement, normal dentition Neck: no masses palpated, normal thyroid, no JVD or audible carotid bruits Heart: Normal rate and rhythm, no murmurs/rubs/gallops Lungs: no audible wheezes, crackles and normal breath sounds all lung hong Abdomen: Normal audible bowel sounds, no distension, No palpable masses, no organomegaly, no rebound/guarding/ or rigidity Musculoskeletal: muscle atrophy noted, ROM is limited due to being in hospital bed, no swelling bilateral lower extremities Vascular: Normal carotid, radial, femoral, posterior tibial, and dorsalis pedis pulses Lymph: no supraclavicular, axillary, or anterior/posterior cervical adenopathy Neuro: CN II-X grossly intact, normal sensation upper and lower extremities Constitutional Vital Signs, click to edit/add: Last Vital Signs Temp 97.5 F L 04/27/23 06:00 Pulse 50 L 04/27/23 07:55 Resp 18 04/27/23 06:00 BP 178/77 H 04/27/23 06:00 Pulse Ox 94 L 04/27/23 06:00 O2 Del Method Room Air 04/27/23 06:00 Progress Note: Objective Labs Labs: BMP 04/26/23 04/26/23 11:33 17:08 Sodium 128 L 129 L Potassium 4.0 4.0 Chloride 94 L 94 L Carbon Dioxide 25.5 26.7 BUN 13.0 13.0 Creatinine 1.23 1.30 Glucose 134 H 116 H Calcium 8.8 8.9 Progress Note: A&P Assessment and Plan (1) Hypertensive emergency: (2) Syncope: (3) Weakness: (4) Acute hyponatremia: (5) Peripheral neuropathy: (6) Headache: Plan (1) Hypertensive emergency: ?Assessment and Plan: continue clonidine, metoprolol and hydralazine IV, patient was placed on telemetry and we'll continue to monitor blood pressure closely and see if this could also be related to his headache. (2) Syncope: ?Assessment and Plan: normal heart catheter approximately one to three months ago is reassuring, MRI of the brain today was normal, carotid artery ultrasounds normal, awaiting echo results. continue on telemetry EKG unremarkable. Cardiac enzymes and proBNP of also been within normal range, could be due to dehydration and electrolyte abnormalities. But we'll rule out any cardiogenic issues, could also be seizure-like activity but low suspicion. May require outpatient Neuro and EEG.could also be something as simple as his sinus infection that could be contributing to vestibular issues placed on Rocephin with addition of Levaquin. Developed bradycardia with rate of 30-40's. that may be due from all the BP received in the ER, held evening meds and resumed today. Will have cardiology see him with the syncope, fall/brent cardia for further recommendations. (3) Weakness: ?Assessment and Plan: most likely due from some dehydration we'll continue IV fluids gentle with normal saline and and/or the electrolyte abnormalities and will replace sodium (4) Acute hyponatremia: ?Assessment and Plan: continue every six hour BMPs monitored closely asymptomatic we'll continue normal saline and hold Flomax (5) Peripheral neuropathy: ?Assessment and Plan: continue oxcarbazepine (6) Headache: ?Assessment and Plan: Tylenol and tramadol as needed for pain continue to monitor blood pressure Plan patient is a full code continue Lovenox for deep vein thrombosis prophylaxis Will place on Protonix for gastrointestinal prophylaxis and GERD Patient was placed in inpatient status and is expected to stay more than two midnights
[2023-04-27] MEDS: LEVOFLOXACIN IN DEXTROSE 5 % 500 MG/100 ML PIGGYBACK 100 MG IV (09:47)
[2023-04-27] MEDS: PANTOPRAZOLE SODIUM 40 MG VIAL IV (09:48)
[2023-04-27] MEDS: CEFTRIAXONE 1,000 MG in 0.9 % SODIUM CHLORIDE 50 ML 100 MG IV (11:40)
--- NOTE | 2023-04-27 13:26 | CM.NOTE ---
Rounds made with Dr. Jaime, no discharge today. Pt will see cardiology and discharge to home tomorrow.
[2023-04-27 16:10] LABS: Osmolality, Urine 481 mOsmol/kg (.)
[2023-04-28] VITALS (8 sets, daily range): BP systolic 156–169; BP diastolic 78–86; PULSE 48–68; RESP 18; TEMP 36.6; O2SAT 97
[2023-04-28] MEDS: 0.9 % SODIUM CHLORIDE 1,000 ML 100 ML IV (03:14)
[2023-04-28] MEDS: HYDRALAZINE HCL 20 MG/ML VIAL 10 MG IVP (05:25)
[2023-04-28] MEDS: CLONIDINE HCL 0.1 MG TABLET 0.2 MG PO (08:29)
[2023-04-28] MEDS: ATORVASTATIN CALCIUM 10 MG TABLET PO (08:30)
[2023-04-28] MEDS: METOPROLOL TARTRATE 50 MG TABLET 75 MG PO (08:30)
[2023-04-28] MEDS: PANTOPRAZOLE SODIUM 40 MG VIAL IV (08:30)
[2023-04-28] MEDS: OXcarbazepine 300 MG TABLET PO (08:30)
[2023-04-28] MEDS: ENOXAPARIN SODIUM 40 MG/0.4 ML SYRINGE SUBQ (08:31)
[2023-04-28] MEDS: TRAMADOL HCL 50 MG TABLET PO (08:31)
--- NOTE | 2023-04-28 08:51 | P.DS_ITS ---
DS: Providers Provider Date of admission: 04/26/23 01:22 Primary care physician: ALOK HERRERA Admitting clinician: Carli Jensen Consults: 04/26/23 01:45 Occupational Therapy Eval and Treat Routine Physical Therapy Eval and Treat Routine 04/27/23 08:53 Consult to Cardiology Routine Consulting Provider: Hospitalist Discharging clinician: Tatianna Jaime DS: Diagnosis Discharge Diagnosis (1) Hypertensive emergency: (2) Syncope: (3) Weakness: (4) Acute hyponatremia: (5) Peripheral neuropathy: (6) Headache: Plan Plan (1) Hypertensive emergency: ?Assessment and Plan: continue clonidine, metoprolol and hydralazine IV, patient was placed on telemetry, blood pressure was stable on discharge. (2) Syncope: ?Assessment and Plan: normal heart catheter approximately one to three months ago is reassuring, MRI of the brain was normal, carotid artery ultrasounds normal, echo normal. continue on telemetry EKG unremarkable. Cardiac enzymes and proBNP of also been within normal range, could be due to dehydration and electrolyte abnormalities. But we'll rule out any cardiogenic issues with placement of Holter monitor. 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 could also be seizure-like activity but low suspicion. May require outpatient Neuro and EEG if his pcp determines otherwise.could also be something as simple as his sinus infection that could be contributing to vestibular issues placed on Rocephin with addition of Levaquin, will be discharged on Levaquin 750mg daily for 5 days. Developed bradycardia with rate of 30-40's. that may be due from all the BP received in the ER, cardiology did not actively see him in the hospital despite consult, Dr. Edgar Williamson called me last night about 20:00 and discussed negative work up with recommendation for holter monitor and cards follow up. No further recommendations. I have yet to see a consult note on patient's chart. (3) Weakness: ?Assessment and Plan: most likely due from some dehydration, IV fluids gentle with normal saline and and/or the electrolyte abnormalities and will replace sodium (4) Acute hyponatremia: ?Assessment and Plan: continue every six hour BMPs monitored closely asymptomatic we'll continue normal saline and hold Flomax but may resume as outpatient (5) Peripheral neuropathy: ?Assessment and Plan: continue oxcarbazepine (6) Headache: ?Assessment and Plan: Tylenol and tramadol as needed for pain continue to monitor blood pressure, Tyelenol as outpatient DS: Summary Time Spent with Patient Time attestation: Total time spent providing and/or coordinating discharge services: Exam Narrative Exam Narrative: General: Patient is alert, and oriented to person, place and time with normal affect, proper hygiene Skin: no visible rashes, or ulcers Head: atraumatic, acephalic Eyes: PERRLA, no nystagmus present, conjunctiva clear, no scleral icterus Neck: no masses palpated, normal thyroid, no JVD or audible carotid bruits Heart: Normal rate and rhythm, no murmurs/rubs/gallops Lungs: no audible wheezes, crackles and normal breath sounds all lung hong Abdomen: Normal audible bowel sounds, no distension, No palpable masses, no organomegaly, no rebound/guarding/ or rigidity Musculoskeletal: no swelling bilateral lower extremities Vascular: Normal carotid, radial, femoral, posterior tibial, and dorsalis pedis pulses Lymph: no supraclavicular, axillary, or anterior/posterior cervical adenopathy Neuro: CN II-X grossly intact, normal sensation upper and lower extremities Constitutional Vital Signs, click to edit/add: Last Vital Signs Temp 97.9 F 04/28/23 04:38 Pulse 58 L 04/28/23 08:04 Resp 18 04/28/23 04:38 BP 169/78 H 04/28/23 08:29 Pulse Ox 97 04/28/23 04:38 O2 Del Method Room Air 04/28/23 04:38 DS: Data Data Completed and Pending Labs on day of discharge: Labs from last 24 hours 04/26/23 04:15 Urine Osmolality 481 Discharge Plan Discharge Disposition: Home, Self-Care Condition: Good Discharge Medications: New levofloxacin 750 mg tablet 750 mg PO DAILY 5 Days Qty: 5 0RF Continued lovastatin 40 mg tablet 40 mg PO DAILY oxcarbazepine 300 mg tablet 300 mg PO BID clonidine HCl 0.2 mg tablet 0.2 mg PO Q12H tamsulosin 0.4 mg capsule 0.4 mg PO DAILY pantoprazole 40 mg tablet,delayed release (DR/EC) 40 mg PO DAILY metoprolol tartrate 50 mg tablet 75 mg PO Q12H Probiotic Colon Care 1.5 billion cell capsule 1 cap PO DAILY Activity: increase activity as tolerated Diet: advance to your usual diet Forms: Portal Instructions Follow Up Appointments: Follow up appt. with Remington Ernandez at Dr. Herrera's office on May 05 @ 11:30am Office #: [phone]; Holter monitor results, recheck BMP Follow up appt. with [facility] with Dr. Ramos on @ 3:30pm Office #: [phone]
[2023-04-28] MEDS: LEVOFLOXACIN IN DEXTROSE 5 % 500 MG/100 ML PIGGYBACK 100 MG IV (09:01)
--- NOTE | 2023-04-28 09:11 | CA_ITS ---
[facility] Test Date: 2023-05-13 Pat Name: JEANCARLOS MELÉNDEZ Department: Room: [facility] Gender: Male Fitting Room Checker: : 1940 Requested By: [id number] Order Number: [id number] Reading MD: WAYNE PETERSON Interpretive Statements Predominant rhythm is sinus with average rate of 82 bpm Tachycardia - none Bradycardia - min rate of 31 bpm, [id number] of 6 beats, occurring at 0125 - longest episode of 5h 3min 42sec w/ rate of 31-47 bpm Ventricular ectopy - 182 total (<1%) - 179 PVC - 12 couplets Patient triggered events: none IMpression: Predominant rhythm is sinus with average rate of 82 bpm Fastest rate of 92 bpm and slowest rate of 31 bpm 179 PVC and 12 couplets No obvious blocks or pauses Electronically Signed On 05-14-2023 7:16:56 EDT by WAYNE PETERSON
[2023-04-28 09:25] LABS: Basophils Percent Auto 0.2 % (0.2-2.0); Eosinophils Absolute Auto 0.5 10^3/uL (0.0-0.7); Eosinophils Percent Auto 5.3 % (0.9-7.0); Hematocrit 39.6 % (42.0-54.0); Hemoglobin 13.6 g/dL (14.0-18.0); Immature Granulocytes Abs Auto 0.02 10^3/uL (0.00-0.03); Immature Granulocytes Pct Auto 0.2 % (0.0-0.5); Lymphocytes Absolute Auto 0.8 10^3/uL (1.2-3.8); Lymphocytes Percent Auto 8.8 % (20.5-60.0); Mean Corpuscular HGB Conc 34.3 g/dL (29.9-35.2); Mean Corpuscular Hemoglobin 30.5 pg (25.9-34.0); Mean Corpuscular Volume 88.8 fL (80.0-94.0); Mean Platelet Volume 8.1 fL (9.5-13.5); Monocytes Percent Auto 10.1 % (1.7-12.0); Neutrophils Absolute Auto 7.1 10^3/uL (1.4-6.5); Neutrophils Percent Auto 75.4 % (43.0-75.0); Platelet Count 212 10^3/uL (150-450); Red Blood Count 4.46 10^6/uL (4.70-6.10); Red Cell Distribution Width 12.7 % (11.0-15.0); White Blood Count 9.4 10^3/uL (4.0-11.0)
[2023-04-28 09:57] LABS: Alanine Aminotransferase 13 U/L (16-63); Albumin Level 3.5 g/dL (3.4-5.0); Alkaline Phosphatase 59 U/L (46-116); Anion Gap 12.4; Aspartate Amino Transferase 17 U/L (15-37); BUN Creatinine Ratio 9.6; Bilirubin Total 0.3 mg/dL (0.2-1.0); Calcium 8.8 mg/dL (8.5-10.1); Carbon Dioxide 27.4 mmol/L (21.0-32.0); Chloride 94 mmol/L (98-107); Estimated GFR (African America >60 (>=60); Estimated GFR (Non-African Ame >60 (>=60); Globulin 3.6 g/dL; Glucose 114 mg/dL (74-106); Potassium 3.8 mmol/L (3.5-5.1); Sodium 130 mmol/L (136-145); Total Protein 7.1 g/dL (6.4-8.2)
--- NOTE | 2023-04-28 11:46 | CM.NOTE ---
Rounds made with Dr. 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
--- NOTE | 2023-04-29 10:48 | CM.DCFOLLOWU ---
Person spoke with: patient How are you feeling? a little slow but feeling ok How is your pain? my headache is better Did you understand your discharge instructions? yes Do you have any questions about your discharge instructions? no Were you given any prescriptions at discharge? yes Were you able to get your prescriptions filled? Levofloxacin from [facility] without difficulty Do you understand how to take your medications as ordered? yes Do you have any questions about your follow up appointment and do you plan to keep your follow up appointment? Follow up appt. with Remington Ernandez at Dr. Ferrell's office on May 05 @ 11:30am Office #: [phone]; Holter monitor results, recheck BMP Follow up appt. with [facility] with Dr. Ramos on @ 3:30pm Office #: [phone] The patient plans on keeping all of the appointments above. Discussed the importance of taking his discharge instructions with him to his follow up appointments and having the provider's review them as well. Pt. voiced understanding. Is there anything else that you would like to discuss? None Questions/Comments/Concerns/Other: n/a
== END 2023-04-28 12:15 | disposition home or self-care (01) | DRG 305 ==
LOC: ER 04-26 00:07 → ICU 04-26 09:01 → MS 04-26 17:28
PROVIDERS: Internal Medicine; Admitting Provider Family Medicine; Emergency Provider Emergency Medicine; PCP Family Medicine; Visit Provider Family Medicine
DX: I16.1 Hypertensive emergency (principal); E87.1 Hypo-osmolality and hyponatremia; R55 Syncope and collapse; R53.1 Weakness; G62.9 Polyneuropathy, unspecified; R51.9 Headache, unspecified; E78.5 Hyperlipidemia, unspecified; J32.9 Chronic sinusitis, unspecified; E86.0 Dehydration; R11.2 Nausea with vomiting, unspecified; K21.9 Gastro-esophageal reflux disease without esophagitis; Z98.890 Other specified postprocedural states; Z79.899 Other long term (current) drug therapy
CPT/HCPCS: 36415; 70450; 70551; 80048; 80053; 81003; 82550; 82553; 83605; 83735; 83874; 83880; 83930; 83935; 84300; 84484; 85025; 85610; 93005; 93242; 93306; 93880; 93971; 96361; 96365; 96366; 96367; 96372; 96375; 96376; 97161; 97165; 99285; Q3014

== ENCOUNTER 2024-10-27 19:41 | Emergency (ER) | payer MEDICARE, SELFPAY ==
[2024-10-27 19:45] VITALS: BP 158/77; PULSE 67; TEMP 36.9; O2SAT 97; BMI 27.7
--- NOTE | 2024-10-27 19:50 | PC.NURSE ---
patient complains ' I have a ham caught in my throat onset 6:00 pm tonight. this patient able to speak full sentences, and no visible drooling and voices is not horse. this patient voices no other complaints and shows no signs of distress
--- NOTE | 2024-10-27 20:01 | ED_ITS ---
HPI HPI - General Adult General Chief complaint: Skin/Abscess/Foreign Body Stated complaint: FOOD CAUGHT IN THROAT Time Seen by Provider: 10/27/24 19:50 Source: patient Mode of arrival: walk-in History of Present Illness HPI narrative: Pt was eating small chunks of ham when he had the sensation of a piece getting stuck in the esophagus. He did not choke and he was able to drink milk without vomiting - but the sensation inthe mid upper chest has persisted. no shortness of breath, he is tolerating secretions and he denied any nausea or vomiting. PMH includes hiatal hernia and esophagitis. Related Data Home Medications ?Medication ?Instructions ?Recorded ?Confirmed clonidine HCl 0.2 mg tablet 0.2 mg PO Q12H 04/25/23 04/26/23 lovastatin 40 mg tablet 40 mg PO DAILY 04/25/23 04/26/23 metoprolol tartrate 50 mg tablet 75 mg PO Q12H 04/25/23 04/26/23 oxcarbazepine 300 mg tablet 300 mg PO BID 04/25/23 04/26/23 pantoprazole 40 mg tablet,delayed 40 mg PO DAILY 04/25/23 04/26/23 release tamsulosin 0.4 mg capsule 0.4 mg PO DAILY 04/25/23 04/26/23 Lactobacills gasseri-Bifidobac 1 cap PO DAILY 04/26/23 04/26/23 bifidum,longum 1.5 billion cell capsule (Probiotic Colon Care) Previous Rx's ?Medication ?Instructions ?Recorded levofloxacin 750 mg tablet 750 mg PO DAILY 5 days #5 tabs 04/28/23 Allergies Allergy/AdvReac Type Severity Reaction Status Date / Time No Known Drug Allergies Allergy Verified 04/25/23 22:08 Opioid HPI Opioid Management Most Recent Opioid Data: Last Pain Scale 4 04/28/23 09:46 04/28/23 PFS PFSH Medical History Social History Smoking status: Never smoker Non-prescribed substance use: denies use Previous occupational history: retired Highest level of school completed/degree received: high school graduate Are you now , , , , never or living with a partner: In a typical week, how many times do you talk on the telephone with family, friends, or neighbors: once per week How often do you get together with friends or relatives: once per week Little interest or pleasure in doing things: not at all Feeling down, depressed, or hopeless: not at all Feel stressed/tense/nervous/anxious/difficulty sleeping: not at all Do you think of yourself as: straight/heterosexual Gender Identity: male Exam Narrative Exam Narrative: Nurses notes and vital signs reviewed and patient is not hypoxic. afebrile General: Well-appearing and in no apparent distress. Skin: Warm, dry, no pallor noted. Eye: Pupils are equal, round and EOMI. No scleral icterus. Cardiovascular: Regular Rate and Rhythm without murmur, gallop or rub. Respiratory: No accessory muscle use or respiratory distress. Lungs are clear to auscultation, no wheezing, rales or rhonchi Chest Wall: no tenderness GI: Abdomen is soft, non-distended. Normal bowel sounds. No masses appreciated. No tenderness to palpation. No rebound, guarding, or rigidity noted. Neurological: A&O x4. No cranial nerve dysfunction observed. No truncal ataxia. Moves all extremities. Sensation intact. Psychiatric: Cooperative and interactive. Normal mood and affect. Constitutional Vital Signs, click to edit/add: Last Vital Signs Temp 98.4 F 10/27/24 19:45 Pulse 67 10/27/24 19:45 Resp 16 10/27/24 19:45 BP 158/77 H 10/27/24 19:45 Pulse Ox 97 10/27/24 19:45 O2 Del Method Room Air 10/27/24 19:45 Course Vital Signs Vital signs: Vital Signs Temperature 98.4 F 10/27/24 19:45 Pulse Rate 67 10/27/24 19:45 Respiratory Rate 16 10/27/24 19:45 Blood Pressure 158/77 H 10/27/24 19:45 Pulse Oximetry 97 10/27/24 19:45 Oxygen Delivery Method Room Air 10/27/24 19:45 Temperature 98.4 F 10/27/24 19:45 Pulse Rate 67 10/27/24 19:45 Respiratory Rate 16 10/27/24 19:45 Blood Pressure 158/77 H 10/27/24 19:45 Pulse Oximetry 97 10/27/24 19:45 Oxygen Delivery Method Room Air 10/27/24 19:45 Medical Decision Making MDM Narrative Medical decision making narrative: The patient had sensation of esophageal obstruction but he is able to drink without any vomiting. I suspect he likely had some irritation of the esophagus, secondary to the [place] he was eating, which exacerbated his underlying esophagitis. We discussed soft bland diet for the next 48 to 72 hours and avoidance of any small, or large, harder foods such as pork, steak, chicken or ham. He was given an IM dose of glucagon and then also given a GI cocktail, to decrease the sensation he had in his mid chest. He was discharged home with recommendations to return to the emergency department should he suffer from vomiting and an inability to keep down any fluids including his own secretions. Discharge Plan Discharge Chief Complaint: Skin/Abscess/Foreign Body Clinical Impression: Esophagitis Patient Disposition: Home, Self-Care Time of Disposition Decision: 20:05 Prescriptions / Home Meds: No Action lovastatin 40 mg tablet 40 mg PO DAILY oxcarbazepine 300 mg tablet 300 mg PO BID clonidine HCl 0.2 mg tablet 0.2 mg PO Q12H tamsulosin 0.4 mg capsule 0.4 mg PO DAILY pantoprazole 40 mg tablet,delayed release (DR/EC) 40 mg PO DAILY metoprolol tartrate 50 mg tablet 75 mg PO Q12H Probiotic Colon Care 1.5 billion cell capsule 1 cap PO DAILY levofloxacin 750 mg tablet 750 mg PO DAILY 5 Days Qty: 5 0RF Print Language: Nepali Instructions: Esophagitis (ED) Referrals: ALOK HERRERA [Primary Care Provider] - 1 week
[2024-10-27] MEDS: GLUCAGON 1 MG/ML VIAL IM (20:19)
[2024-10-27] MEDS: lidocaine HCL 15 ML, MAG HYDROX/ALUMINUM HYD/SIMETH 30 ML, HYOSCYAMINE SULFATE 0.25 MG PO (20:24)
--- NOTE | 2024-10-27 20:28 | PC.NURSE ---
medication has been given to this patient, patient aware just now waiting to see if this medication will work. at this time this patient sitting upright on the bed awake and alert watching tv. this patient voices no concerns and shows no signs of distress
--- NOTE | 2024-10-27 20:37 | PC.NURSE ---
i gave this patient verbal and paper discharge orders and this patient voices yes to understanding these. at time of discharge this patient voices no concerns and shows no signs of distress
== END 2024-10-27 20:39 | disposition home or self-care (01) ==
PROVIDERS: Emergency Provider Emergency Medicine; PCP Family Medicine
DX: K20.90 Esophagitis, unspecified without bleeding (principal); K44.9 Diaphragmatic hernia without obstruction or gangrene
CPT/HCPCS: 96372; 99284; J1610

== ENCOUNTER 2025-05-04 09:06 | Emergency (ER) | payer OTHER, MEDICARE, SELFPAY ==
[2025-05-04 09:11] VITALS: BP 169/76; PULSE 60; TEMP 36.6; BMI 29.1
--- NOTE | 2025-05-04 09:19 | ED.GENADUL1 ---
HPI HPI - General Adult General Chief complaint: Animal Bite Stated complaint: DOG BITE R ARM Time Seen by Provider: 05/04/25 09:08 Source: patient Mode of arrival: walk-in Limitations: no limitations History of Present Illness HPI narrative: 84-year-old male presents to the emergency department for dog bite to his right forearm. This happened a few minutes before coming into the emergency department. His last tetanus shot was more than 10 years ago. No weakness or numbness in his fingers. Related Data Home Medications ?Medication ?Instructions ?Recorded ?Confirmed clonidine HCl 0.2 mg tablet 0.2 mg PO Q12H 04/25/23 04/26/23 lovastatin 40 mg tablet 40 mg PO DAILY 04/25/23 04/26/23 metoprolol tartrate 50 mg tablet 75 mg PO Q12H 04/25/23 04/26/23 oxcarbazepine 300 mg tablet 300 mg PO BID 04/25/23 04/26/23 pantoprazole 40 mg tablet,delayed 40 mg PO DAILY 04/25/23 04/26/23 release tamsulosin 0.4 mg capsule 0.4 mg PO DAILY 04/25/23 04/26/23 Lactobacills gasseri-Bifidobac 1 cap PO DAILY 04/26/23 04/26/23 bifidum,longum 1.5 billion cell capsule (Probiotic Colon Care) Previous Rx's ?Medication ?Instructions ?Recorded levofloxacin 750 mg tablet 750 mg PO DAILY 5 days #5 tabs 04/28/23 amoxicillin 875 mg-potassium 1 tab PO BID #14 tabs 05/04/25 clavulanate 125 mg tablet Allergies Allergy/AdvReac Type Severity Reaction Status Date / Time No Known Drug Allergies Allergy Verified 05/04/25 09:11 Opioid HPI Opioid Management Most Recent Opioid Data: Last Pain Scale 10 Today, 09:11 Review of Systems ROS Narrative A ten point review of systems is negative except as noted above. PFSH PFSH Medical History Social History Smoking status: Never smoker Non-prescribed substance use: denies use Previous occupational history: retired Highest level of school completed/degree received: high school graduate Are you now , , , , never or living with a partner: In a typical week, how many times do you talk on the telephone with family, friends, or neighbors: once per week How often do you get together with friends or relatives: once per week Little interest or pleasure in doing things: not at all Feeling down, depressed, or hopeless: not at all Feel stressed/tense/nervous/anxious/difficulty sleeping: not at all Do you think of yourself as: straight/heterosexual Gender Identity: male Exam Narrative Exam Narrative: Nurses note and vital signs reviewed and patient is not hypoxic. General: The patient appears and in no apparent distress. Skin: Warm, dry, no pallor noted. There is no rash noted. Head: Normocephalic, atraumatic Eye: Normal conjunctiva, no drainage Ears, Nose, Mouth, and Throat: oral mucosa is moist. Nares patent. Cardiovascular: Regular Rate and Rhythm Respiratory: Patient is in no distress, no accessory muscle use, lungs are clear to auscultation, no wheezing, rales or rhonchi Back: non-tender GI: Soft and nontender Musculoskeletal: He has several puncture gómez and superficial abrasions on the distal right forearm. He has a single deep linear laceration which is 3.5 cm in length. Tendon is visible but when put through full range of motion there is no defect noted. He is able to flex and extend each finger individually as well as his wrist. On the ulnar side of his wrist there is a nongaping 1 cm laceration. Neurological: A&O, normal speech Psychiatric: Cooperative Constitutional Vital Signs, click to edit/add: Last Vital Signs Temp 97.9 F 05/04/25 09:11 Pulse 60 05/04/25 09:11 Resp 16 05/04/25 09:11 BP 169/76 H 05/04/25 09:11 Course Vital Signs Vital signs: Vital Signs Temperature 97.9 F 05/04/25 09:11 Pulse Rate 60 05/04/25 09:11 Respiratory Rate 16 05/04/25 09:11 Blood Pressure 169/76 H 05/04/25 09:11 Temperature 97.9 F 05/04/25 09:11 Pulse Rate 60 05/04/25 09:11 Respiratory Rate 16 05/04/25 09:11 Blood Pressure 169/76 H 05/04/25 09:11 Medical Decision Making MDM Narrative Medical decision making narrative: The following procedure is performed by me. Local infiltration carried out with 1% lidocaine without epinephrine resulting in complete skin anesthesia. The area was prepped with Betadine x 3 and draped sterilely. The length of the visible tendon was inspected and no defect was found. The wound was then closed with three 4-0 Ethilon sutures resulting in good skin reapproximation and no complications. Steri-Strips applied to the 1 cm wound and tetanus status was updated and he was prescribed Augmentin. Sutures are to be removed in 10 days. Treatment diagnosis and follow-up were discussed with the patient. Differential Diagnosis Differential Diagnosis: Dog bite, tendon injury Discharge Plan Discharge Chief Complaint: Animal Bite Clinical Impression: Dog bite Patient Disposition: Home, Self-Care Time of Disposition Decision: 09:38 Condition: Good Mode of Transportation: Private Vehicle Prescriptions / Home Meds: New amoxicillin-pot clavulanate 875-125 mg tablet 1 tab PO BID Qty: 14 0RF No Action lovastatin 40 mg tablet 40 mg PO DAILY oxcarbazepine 300 mg tablet 300 mg PO BID clonidine HCl 0.2 mg tablet 0.2 mg PO Q12H tamsulosin 0.4 mg capsule 0.4 mg PO DAILY pantoprazole 40 mg tablet,delayed release (DR/EC) 40 mg PO DAILY metoprolol tartrate 50 mg tablet 75 mg PO Q12H Probiotic Colon Care 1.5 billion cell capsule 1 cap PO DAILY levofloxacin 750 mg tablet 750 mg PO DAILY 5 Days Qty: 5 0RF Print Language: Romanian Instructions: Animal Bite (ED) Additional Instructions: Sutures are to be removed in 10 days, Wednesday, May 14. Referrals: ALOK HERRERA [Primary Care Provider, Family Practice] - 1 week
[2025-05-04] MEDS: LIDOCAINE HCL 1% 100 MG/10 ML MDV INJ (09:36)
[2025-05-04] MEDS: ADACEL DIPH,PERTUSS(ACELL),TET VAC/PF 0.5 ML ADULT SYRINGE IM (09:56)
== END 2025-05-04 10:00 | disposition home or self-care (01) ==
PROVIDERS: Emergency Provider Emergency Medicine; PCP Family Medicine
DX: S51.811A Laceration without foreign body of right forearm, initial encounter (principal); S61.511A Laceration without foreign body of right wrist, initial encounter; W54.0XXA Bitten by dog, initial encounter; Z23 Encounter for immunization
CPT/HCPCS: 12002; 90471; 90715; 99284